=== PATIENT | male | born 1980 | race Caucasian/White ===

== ENCOUNTER 2017-04-29 03:28 | Emergency (ER) | payer MEDICARE ==
[~2017-04-29] VITALS: Ht 175.3 cm; Wt 67.7 kg
[2017-04-29] MEDS ORDERED: KETOROLAC 30 MG/1 ML ONE (04:42)
[2017-04-29] MEDS ORDERED: SODIUM CHLORIDE FLUSH 10ML SYR IVF ONE (05:00)
[2017-04-29] MEDS ORDERED: KETOROLAC 30 MG/1 ML IVPush ONE (05:00)
[2017-04-29] MEDS ORDERED: SODIUM CHLORIDE 0.9% 1,000ML IVBOLUS ONE ×2 (05:00→06:00)
[2017-04-29 05:23] LABS: BLOOD UREA NITROGEN 15 mg/dL (7-18)
[2017-04-29 05:29] LABS: IS PT STATUS REG ER OR PRE ER? YES
[2017-04-29] MEDS ORDERED: POTASSIUM CHLORIDE 20 MEQ TAB.ER.PRT PO ONE (05:30)
[2017-04-29] MEDS ORDERED: POTASSIUM CHLORIDE 20 MEQ TAB.ER.PRT ONE (05:37)
[2017-04-29 06:35] VITALS: BP 102/57
== END 2017-04-29 06:42 | disposition home or self-care (01) ==
LOC: ED 06:36
DX: R07.2 Precordial pain (principal); F15.10 Other stimulant abuse, uncomplicated; E87.6 Hypokalemia
CPT/HCPCS: 36415; 71020; 80048; 81001; 82040; 82550; 84484; 85025; 85379; 87086; 93005; 96361; 96374; 99285; J1885; J7030

== ENCOUNTER 2017-04-29 22:25 | Inpatient (IN) | payer MEDICARE ==
[~2017-04-29] VITALS: Ht 180.3 cm; Wt 67.0 kg
[2017-04-29] MEDS ORDERED: ASPIRIN 81 MG TABLET CHEW ONE (22:46)
[2017-04-29 22:59] LABS: ASPARTATE AMINO TRANSFERASE 41 U/L (15-37); BLOOD UREA NITROGEN 10 mg/dL (7-18)
[2017-04-29] MEDS ORDERED: SODIUM CHLORIDE 0.9% 1,000ML IVBOLUS ONE (23:00)
[2017-04-29] MEDS ORDERED: ASPIRIN 81 MG TABLET CHEW PO ONE (23:00)
[2017-04-29 23:07] LABS: IS PT STATUS REG ER OR PRE ER? YES
[2017-04-29 23:07] LABS: DAU SCREEN DISCLAIMER
[2017-04-30 01:30] VITALS: BP 117/77
[2017-04-30] MEDS ORDERED: ONDANSETRON 2MG/ML, 2ML IVPush PRN (02:30)
[2017-04-30] MEDS ORDERED: LORazepam 2 MG/ML, 1ML IVPush PRN (02:30)
[2017-04-30] MEDS ORDERED: ENOXAPARIN 40 MG/0.4 ML SQ SCH (02:30)
[2017-04-30] MEDS ORDERED: morphine SULFATE 10 MG/ML, 1ML IVPush PRN (02:30)
[2017-04-30] MEDS ORDERED: HYDROcodone/APAP 5/325 TABLET PO PRN (02:30)
[2017-04-30] MEDS ORDERED: GUAIFENESIN/DM 200-20MG, 10ML UDC PO PRN (02:30)
[2017-04-30] MEDS ORDERED: ACETAMINOPHEN 325 MG TABLET PO PRN (02:30)
[2017-04-30] MEDS ORDERED: POTASSIUM CHLORIDE 20 MEQ TAB.ER.PRT PO ONE (02:30)
[2017-04-30] MEDS: SODIUM CHLORIDE 0.9% 1,000 ML IV SCH ×2 (02:50→11:50)
[2017-04-30 04:02] LABS: IS PT STATUS REG ER OR PRE ER? NO
[2017-04-30 07:15] VITALS: BP 128/85
[2017-04-30 08:45] LABS: IS PT STATUS REG ER OR PRE ER? NO
[2017-04-30] MEDS ORDERED: FAMOTIDINE 20 MG TABLET PO SCH (09:00)
[2017-04-30 14:55] VITALS: BP 112/71
== END 2017-04-30 16:00 | disposition home or self-care (01) | DRG 897 ==
LOC: ED 22:33 → EDIP 04-30 00:33 → 5SO 04-30 01:25
PROVIDERS: ADMIT Internal Medicine; ATTEND Internal Medicine
DX: F15.188 Other stimulant abuse with other stimulant-induced disorder (principal); E87.2 Acidosis; N17.9 Acute kidney failure, unspecified; Z71.51 Drug abuse counseling and surveillance of drug abuser; F41.9 Anxiety disorder, unspecified; E87.6 Hypokalemia; F17.210 Nicotine dependence, cigarettes, uncomplicated; N18.3 Chronic kidney disease, stage 3 (moderate); I25.10 Atherosclerotic heart disease of native coronary artery without angina pectoris; M25.562 Pain in left knee
CPT/HCPCS: 36415; 71010; 80053; 80307; 81001; 84484; 85025; 93005; 96360; 96361; J7030